=== PATIENT | male | born 1960 | race Asian ===

== ENCOUNTER 2020-02-10 10:16 | Emergency (ER) | payer OTHER ==
[~2020-02-10] VITALS: Ht 167.6 cm; Wt 79.4 kg
[2020-02-10 10:26] VITALS: BP_SYST 164
[2020-02-10] MEDS ORDERED: KETOROLAC TROMETHAMINE 15 MG VIAL IVP ONE (11:00)
[2020-02-10] MEDS ORDERED: ONDANSETRON HCL 4 MG/2 ML VIAL IVP ONE (11:00)
[2020-02-10] MEDS ORDERED: PANTOPRAZOLE SODIUM 40 MG/VIAL (PROTONIX) IVP ONE (11:00)
[2020-02-10 11:03] LABS: BASOPHILS % (AUTO) 0.3 % (0.0-2.0); EOSINOPHILS % (AUTO) 0.1 % (0.0-4.0); HEMATOCRIT 46.2 % (36-54); HEMOGLOBIN 14.3 g/dL (14.0-18.0); LYMPHOCYTES # (AUTO) 0.6 K/uL (1.0-5.5); LYMPHOCYTES % (AUTO) 9.2 % (20.5-51.5); MEAN CORPUSCULAR HEMOGLOBIN 21 pg (27-31); MEAN CORPUSCULAR HGB CONC 31 % (32-36); MEAN CORPUSCULAR VOLUME 67 fL (79.0-98.0); MONOCYTES # (AUTO) 0.2 K/uL (0.0-1.0); MONOCYTES % (AUTO) 2.6 % (1.7-9.3); NEUTROPHILS # (AUTO) 6.2 K/uL (1.8-7.7); NEUTROPHILS % (AUTO) 87.8 % (40.0-70.0); PLATELET COUNT (AUTO) 203 K/uL (130-430); RED BLOOD CELL COUNT(AUTO) 6.85 MIL/uL (4.2-6.2)
[2020-02-10 11:17] LABS: CREATININE 0.81 mg/dL (0.55-1.30); POTASSIUM 4.2 mmol/L (3.5-5.1)
[2020-02-10 11:24] LABS: ALBUMIN 4.2 g/dL (3.4-4.8); TOTAL BILIRUBIN 0.7 mg/dL (0.0-1.0)
[2020-02-10 14:08] VITALS: BP_SYST 138
== END 2020-02-10 14:09 | disposition home or self-care (01) ==
LOC: SED 10:16
DX: R11.10 Vomiting, unspecified (principal); I10 Essential (primary) hypertension
CPT/HCPCS: 36415; 70450; 70490; 80053; 85025; 96374; 96375; 99285; C9113; J1885; J2405